=== PATIENT | male | born 1995 | race Two or more races ===

== ENCOUNTER 2023-05-19 12:48 | Emergency (ER) | payer OTHER ==
[~2023-05-19] VITALS: Ht 172.7 cm; Wt 83.9 kg
[2023-05-19 15:34] LABS: HEMATOCRIT 42.3 % (39.0-48.0); HEMOGLOBIN 14.4 g/dL (13-16.00); MEAN CELL VOLUME 82.4 fL (80.0-100.00); MEAN CORPUSCULAR HEMOGLOBIN 28.1 pg (27.00-32.0); MEAN CORPUSCULAR HGB CONC 34.1 g/dl (32.0-36.0); PLATELET COUNT 130 K/uL (150-450); RED BLOOD COUNT 5.14 M/uL (4.00-6.00); RED CELL DISTRIBUTION WIDTH 13.9 % (11.5-14.5)
== END 2023-05-19 16:18 | disposition home or self-care (01) ==
LOC: ER 12:48
PROVIDERS: General Practice
DX: R53.81 Other malaise (principal); Z20.822 Contact with and (suspected) exposure to COVID-19